=== PATIENT | female | born 1995 | race Caucasian/White ===

== ENCOUNTER 2024-05-01 05:35 | Observation (INO) | payer BC, SELFPAY ==
[2024-05-01 05:47] VITALS: BMI 37.8
[2024-05-01 05:55] VITALS: BP 119/62
[2024-05-01 11:05] LABS: % Basophils 0.1 % (0-2); % Eosinophils 0.1 % (0-6); % Immature Granulocytes 0.4 % (0-0.5); % Lymphocytes 24.6 % (20.5-51.1); % Monocytes 5.8 % (1.7-9.3); Absolute Lymphocytes 1.9 10^3/uL (1.2-3.4); Absolute Monocytes 0.5 10^3/uL (0.1-0.6); Absolute Neutrophils 5.4 10^3/uL (1.4-6.5); Hematocrit 32.4 % (37.0-47.0); Hemoglobin 11.5 g/dL (12.0-16.0); Mean Corp Hgb Conc. 35.5 g/dL (33.0-37.0); Mean Corpuscular Hgb 29.2 pg (27.0-31.0); Mean Corpuscular Volume 82.2 fL (81.0-99.0); Mean Platelet Volume 9.7 fL (7.4-10.4); Nucleated Red Blood Cells % 0 %; Platelet Count 197 10^3/uL (130-400); Red Blood Cell Count 3.94 10^6/uL (4.20-5.40); Red Cell Dist. Width 13.3 % (11.5-14.5); White Blood Cell Count 7.8 10^3/uL (4.8-10.8)
== END 2024-05-01 13:13 | disposition home or self-care (01) ==
LOC: LDRP 05:35
PROVIDERS: ADMITTING PHYSICIAN Obstetrics & Gynecology; REFERRING PHYSICIAN Obstetrics & Gynecology
DX: O48.0 Post-term pregnancy (principal); Z3A.40 40 weeks gestation of pregnancy; Q23.1 Congenital insufficiency of aortic valve; O47.1 False labor at or after 37 completed weeks of gestation; Z91.199 Patient's noncompliance with other medical treatment and regimen due to unspecified reason; Z83.3 Family history of diabetes mellitus; Z80.3 Family history of malignant neoplasm of breast; Z82.3 Family history of stroke; Z82.0 Family history of epilepsy and other diseases of the nervous system
CPT/HCPCS: 36415; 85025; 86850; 86900; 86901

== ENCOUNTER 2024-05-01 20:25 | Inpatient (IN) | payer BC, SELFPAY ==
[2024-05-01 20:33] VITALS: BP 141/76; BMI 37.8
[2024-05-01] MEDS: LR 1000 IV ×2 (20:55→22:45)
[2024-05-01] MEDS: SUBLIMAZE 100 MCG EPIDURAL (21:37)
[2024-05-01] MEDS: FENTANYL/BUPIVACAINE 100 EPIDURAL (21:38)
[2024-05-01 22:14] LABS: % Basophils 0.2 % (0-2); % Eosinophils 0.1 % (0-6); % Immature Granulocytes 0.4 % (0-0.5); % Lymphocytes 15.4 % (20.5-51.1); % Monocytes 4.3 % (1.7-9.3); % Neutrophils 79.6 % (42.2-75.2); Absolute Lymphocytes 1.6 10^3/uL (1.2-3.4); Absolute Monocytes 0.4 10^3/uL (0.1-0.6); Absolute Neutrophils 8.2 10^3/uL (1.4-6.5); Hematocrit 33.2 % (37.0-47.0); Hemoglobin 11.8 g/dL (12.0-16.0); Mean Corp Hgb Conc. 35.5 g/dL (33.0-37.0); Mean Corpuscular Hgb 29.1 pg (27.0-31.0); Nucleated Red Blood Cells % 0 %; Platelet Count 211 10^3/uL (130-400); Red Blood Cell Count 4.05 10^6/uL (4.20-5.40); Red Cell Dist. Width 13.3 % (11.5-14.5); White Blood Cell Count 10.3 10^3/uL (4.8-10.8)
--- NOTE | 2024-05-02 03:03 | DOWNTIME ---
There was a [employer] Downtime on 05/02/2024 from 0100 to 05/02/2024 at 0300. Downtime documentation of patient's care, including medication administrations, has been reconciled in the electronic record per guidelines. Refer to the
patient's paper chart under the miscellaneous tab to see printed paper medication records and downtime forms.
[2024-05-02] MEDS: FENTANYL/BUPIVACAINE 100 EPIDURAL ×2 (04:49→11:55)
[2024-05-02] MEDS: PITOCIN 30 UNITS/NSS 500 ML IV (07:58)
[2024-05-02] MEDS: LR 1000 IV (08:02)
[2024-05-02] MEDS: TYLENOL 650 MG PO (16:17)
[2024-05-03] MEDS: MOTRIN 600 MG PO ×2 (04:07→19:56)
[2024-05-03 04:43] LABS: Hematocrit 28.7 % (37.0-47.0); Hemoglobin 10.1 g/dL (12.0-16.0)
[2024-05-03] MEDS: SENOKOT-S 1 TABLET PO (07:57)
[2024-05-03] MEDS: PRENATAL PLUS 1 TABLET PO (07:57)
[2024-05-04] MEDS: SENOKOT-S 1 TABLET PO (10:19)
[2024-05-04] MEDS: PRENATAL PLUS 1 TABLET PO (10:19)
[2024-05-04] MEDS: FEOSOL 325 MG PO (10:19)
[2024-05-04] MEDS: MOTRIN 600 MG PO (10:31)
[2024-05-04] MEDS: TYLENOL 650 MG PO (10:31)
[2024-05-04 11:52] LABS: Syphilis/T. pallidum Ab Reflex Negative (Negative)
== END 2024-05-04 16:16 | disposition home or self-care (01) | DRG 807 ==
LOC: LDRP 20:25
PROVIDERS: Obstetrics & Gynecology; ADMITTING PHYSICIAN Obstetrics & Gynecology; ATTENDING PHYSICIAN Obstetrics & Gynecology
PROC: 10E0XZZ Delivery of Products of Conception, External Approach (ICD-10-PCS; 2024-05-02)
DX: O77.0 Labor and delivery complicated by meconium in amniotic fluid (principal); Z37.0 Single live birth; O76 Abnormality in fetal heart rate and rhythm complicating labor and delivery; O69.81X0 Labor and delivery complicated by cord around neck, without compression, not applicable or unspecified; Z3A.40 40 weeks gestation of pregnancy
CPT/HCPCS: 85014; 85018; 85025; 86780